=== PATIENT | female | born 1965 | race Caucasian/White ===

== ENCOUNTER → 2017-05-19 | Outpatient (CLI) | payer OTHER ==
--- NOTE | 2017-05-20 17:57 | CT ---
EXAM DESCRIPTION: CTA Chest CLINICAL HISTORY: 51 years, Female, AORTIC ARCH SYNDROME [[id number]] COMPARISON: None TECHNIQUE: Rapid bolus administration of nonionicIV contrast was performed with thin-section axial scanning of the chest performed in a dynamic fashion. Reconstructed multiplanar and three dimensional MIP and/or VRT images were created on a separate dedicated workstation were reviewed along with the source axial images and stored in the patient's medical record. Stenoses were evaluated using the NASCET criteria. This exam was performed according to our departmental dose-optimization program, which includes automated exposure control, adjustment of the mA and/or kV according to patient size and/or use of iterative reconstruction technique. FINDINGS: CT of the chest to evaluate the aortic arch and great vessels was performed and demonstrates a normal-sized heart. There is diminished vascular enhancement within the pulmonary vessels but good quality enhancement of the aorta and great vessels. Aortic annulus and valve is normal in caliber but there is significant dilation of the a.c. sending aorta measuring 3.7 cm in diameter and continuing the proximal portion of the aortic arch at the level of the innominate artery. The descending thoracic aorta is 2.2 cm in diameter and the mid aortic arch is 2.4 cm in diameter. Tiny amount of calcific plaque in the aortic arch just proximal to the left subclavian origin is present. The origin of the innominate artery and bifurcation and origin of the subclavian and common carotid artery on the right are widely patent. The origin of the right vertebral artery is not well seen secondary to dense contrast remaining in the right subclavian vein and collateral vessels. The left common carotid artery origin is widely patent. Small amount of ascitic plaque along the superior surface the aortic arch just proximal to the left subclavian origin is present without significant stenosis of that vessel. The origin of the small caliber left vertebral artery is normal. Continuing distally in the descending aorta at the origin of the celiac axis in the upper abdomen is normal. Modest degenerative changes and dextroscoliosis of the thoracic spine is evident. No evidence of pulmonary embolus or obstruction of the pulmonary outflow tract or Central pulmonary vessels are noted. The right lung is clear and the left lung demonstrates minor basilar scarring or linear atelectasis at the mid lung base. IMPRESSION: 1. 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 2. 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 Small amount of calcific plaque along the superior surface of the aortic arch proximal to the left subclavian artery is noted. 3. Minor linear scarring or atelectasis at the left lung base. 4. Incidental note of small sliding-type hiatal hernia. Electronically signed by: Kirby Frausto MD 05/20/2017 5:55 PM CDT
== END | disposition home or self-care (01) ==
LOC: CT 07:58
PROVIDERS: ATTEND Nuclear Medicine Nuclear Cardiology
DX: M31.4 Aortic arch syndrome [Takayasu] (principal); I73.9 Peripheral vascular disease, unspecified; Q23.0 Congenital stenosis of aortic valve; E78.2 Mixed hyperlipidemia

== ENCOUNTER → 2019-07-06 | Outpatient (CLI) | payer OTHER ==
--- NOTE | 2019-07-07 08:18 | CT ---
EXAM DESCRIPTION: CTA Chest: Computed Tomography. CLINICAL HISTORY: AORTIC STENOSIS. Preprocedure planning: aortic valve replacement. COMPARISON: CTA chest for May 2017. TECHNIQUE: Spiral-axial scans at 2.5 x 2.5 mm intervals through the aorta after bolus infusion of IV contrast. Lung algorithm 1.25 x 2.5-mm axial reconstructions. Sagittal and coronal 2.0 Mm reconstructions. 0.6 mm HD MIP on rotational axis and 0.6 mm volume rendering rotational axis 3-D reformatted images. No adverse reactions. Total Exam DLP: 613.61 mGy-cm. This exam was performed according to our departmental CT dose-optimization program which includes automated exposure control, adjustment of the mA and/or kV according to patient size and/or use of iterative reconstruction technique; to reduce radiation dose to as low as reasonably achievable (ALARA). FINDINGS: Aorta: Aortic valve is visualized with central calcification enlarged compared to prior study. Aorta just distal to the valve is narrowed 2.3 cm. At the level of the pulmonary artery bifurcation in the mid ascending arch, diameter is 3.3 cm. There is a questionable wall defect laterally with lateral bulge of the lumen at this level. This could also represent an artifact, but was also seen on the prior study. 3.6 cm diameter between this level and the origin of the right innominate artery. Minimal atherosclerotic calcification on the inferior wall. At the origin of the right innominate artery, diameter is 2.5 cm. Minimal calcification of the ostium and approximately 20% diameter stenosis. At the origin of the left subclavian artery, diameter is 2.1 x 2.4 cm with approximately 40% diameter stenosis of the ostium of the artery with atherosclerotic calcification. This has progressed since the prior study. 2.5 x 2.4 cm diameter at the level of the tracheal pam. Origins of the common carotid artery, and left vertebral artery are unremarkable. Origin of the right vertebral artery is partially obscured by artifact from IV contrast in the right subclavian vein. Heart and other great vessels: Left atrium appears slightly more enlarged since the prior study. Brachiocephalic vessels show no calcification distal to the ostia as described above. Minimal contrast enhancement of the pulmonary artery and proximal branches with no filling defects. Lungs and airways: Pleural parenchymal scarring in the bilateral lower lobes. Bilateral pleural-based blebs. Posterior inferior dependent atelectasis right lower lobe base. No abnormal nodules or masses. No focal infiltrates. Pleura: Sporadic pleural thickening but no effusion or pneumothorax. Mediastinum and felicita: scatter artifact from dense aortic contrast. Small lymph nodes. Fatty hilum in the larger lymph nodes in the AP window and azygous space. No dominant soft tissue masses. 11 mm right hilar node is stable. Soft tissue neck, chest wall, and axillae: Bilateral axillary lymph nodes. No dominant soft tissue masses. Upper abdomen: Uniform enhancement of the included organs. No free air or free fluid in the included retroperitoneal space. Partial visualization of the gallbladder. Atherosclerotic changes with calcification upper abdominal aorta. Osseous structures: Multiple levels of spondylosis mid and lower thoracic spine. No lytic or blastic lesions. IMPRESSION: Mammogram 1. Aortic valve contains a larger calcification compared to the prior study. Narrowing immediately distal to the valve with diameter 2.3 cm. Largest diameter of the aorta is between the most lateral segment and the origin of the innominate artery, 3.6 cm. There is also a lateral bulge of the lateral aortic wall at this level which was also seen on the prior study. With no significant change. Calcification of the ostia of the innominate artery and left subclavian artery. 40% stenosis of the origin of the left subclavian. Electronically signed by: Alexandro Vang MD 07/07/2019 8:17 AM SECURITY MANAGEMENT SPECIALIST
== END ==
LOC: CT 07:55
PROVIDERS: ATTEND Thoracic Surgery (Cardiothoracic Vascular Surgery)
DX: I35.0 Nonrheumatic aortic (valve) stenosis (principal)

== ENCOUNTER → 2019-07-10 | Outpatient (CLI) | payer OTHER | LOC: LAB.O 14:20 | PROVIDERS: ATTEND Thoracic Surgery (Cardiothoracic Vascular Surgery) | DX: Z01.89 Encounter for other specified special examinations (principal) ==

== ENCOUNTER 2019-12-04 16:53 | Observation (INO) | payer OTHER ==
[2019-12-04] MEDS ORDERED: predniSONE 20 MG TAB PO ONE (17:05)
[2019-12-04] MEDS ORDERED: ACETAMINOPHEN 325 MG TAB PO ONE ×2 (17:05→19:59)
[2019-12-04] MEDS ORDERED: diphenhydrAMINE HCL 25 MG CAP PO ONE (17:05)
--- NOTE | 2019-12-04 17:31 | RAD ---
EXAM DESCRIPTION: Abdomen Series CLINICAL HISTORY: 54 years Female, anemia severe COMPARISON: None. FINDINGS: Sternotomy wires are present. Heart size is normal. No consolidating infiltrate. Slight blunting of left costophrenic angle. Linear scarring in the right lung base. Upright view of the abdomen shows no free air under the diaphragm. Arthritic hardware in the lower lumbar spine. Mild leftward curvature of the lower thoracic and upper lumbar spine. Supine view the abdomen shows moderate to large in amount of fecal material in the colon. No small bowel dilatation to suggest obstruction. Sacrum and bones of the upper pelvis appear intact. IMPRESSION: Moderate amount of fecal material in the colon. Prominent heart without congestive failure. Discoid atelectasis lung bases. Left pleural scarring or small effusion. Electronically signed by: Juan Montemayor MD 12/04/2019 5:30 PM CDT
--- NOTE | 2019-12-04 18:32 | ED.PDOC ---
History of Present Illness - General Chief Complaint: General Stated Complaint: SOB, Dizziness, Low H/H Time Seen by Provider: 12/04/19 16:58 Source: patient Exam Limitations: no limitations - History of Present Illness Initial Comments: The patient is a 54-year-old female presented emergency room after being sent over from clinic secondary to severe anemia and associated fatigue and shortness of breath related to that. The patient has been feeling poorly for at least the last 2 to 3 weeks and from her description likely significantly longer. The patient does take Coumadin for a mechanical valve that was placed back in July. The patient has apparently only had one INR check in August since that time. She has not had any hemoglobin checks since surgery apparently. The patient is pleasant and cooperative. No fever. No shortness of breath at rest. No edema. The patient is pleasant and cooperative though is easily winded and very weak in general. She denies any melanotic stools and no blood in stool and no vomiting. No abdominal pain. The patient reports that she had a lower endoscopy with Dr. Curiel here about 4 years ago that was apparently normal. She reports having an upper endoscopy that was normal 10 years ago with someone else. Timing/Duration: unsure Severity: severe Improving Factors: rest Worsening Factors: movement Associated Symptoms: malaise, shortness of breath, weakness Allergies/Adverse Reactions: Allergies Sulfa Antibiotics Allergy (Unknown, Verified 12/04/19 17:03) Home Medications: Ambulatory Orders Albuterol Sulfate [Proair Digihaler] 108 mcg IN BID 12/04/19 Amoxicillin & Pot Clavulanate [Augmentin Tab] 875 mg PO BID 12/04/19 Omeprazole Magnesium [Prilosec Otc] 20 mg PO DAILY 12/04/19 Warfarin Sodium 5 mg PO WKLY 12/04/19 Warfarin Sodium [Coumadin] 2.5 mg PO WKLY 12/04/19 Review of Systems - Review of Systems Constitutional: States: malaise, weakness EENTM: States: no symptoms reported Respiratory: States: short of breath Cardiology: States: other - Near syncope Gastrointestinal/Abdominal: States: no symptoms reported Genitourinary: States: no symptoms reported Musculoskeletal: States: no symptoms reported Skin: States: no symptoms reported Neurological: States: weakness Endocrine: States: no symptoms reported All other Systems: No Change from Baseline Past Medical History (General) - Patient Medical History Hx Cardiac Disorders: Yes - aortic valve Hx Congestive Heart Failure: No Hx Diabetes: No Surgical History: other - Vaccination History Hx Influenza Vaccination: No - Social History Hx Alcohol Use: Yes - sparingly - Activities of Daily Living Hospice Agency (if applicable):: None - Female History Patient is a Female of Child Bearing Age (10 -59 yrs old): No Patient : No - Triage Comment ED Triage Comment: pt voices SOB, dizziness that has been worsing since open heart procedure in July. She voices that she decided to have a exam done by doctor and lab results showed low H/H so she was referred here to ER by Dr. Gatica. Family Medical History - Family History Mother Family History: Unknown Physical Exam - Physical Exam General Appearance: Alert, Frail, Ill Appearing Eye Exam: bilateral normal Ears, Nose, Throat: hearing grossly normal, normal pharynx - Pale mucous membranes Neck: full range of motion, supple Respiratory: lungs clear, normal breath sounds, no respiratory distress, no accessory muscle use Cardiovascular/Chest: normal peripheral pulses, regular rate, rhythm, no edema Peripheral Pulses: radial,right: 2+, radial,left: 2+ Gastrointestinal/Abdominal: non tender, soft Rectal Exam: deferred Back Exam: no CVA tenderness, no vertebral tenderness Extremity: normal range of motion, non-tender, normal inspection, no pedal edema, normal capillary refill 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 Based on the changes in her red blood cells this is likely at least 3 or 4 months making. The patient reports no history of any obvious GI blood loss. No abdominal pain. Multiple send out labs are of course still pending at this time. The patient is going to be receiving matched packed red blood cells here tonight. She has been premedicated. Obviously the patient is going to need endoscopy at some point in the future, however given the current limitations with coronavirus that will likely be put off several weeks given that she does not appear to be actively significantly bleeding at this time. It is uncertain whether the patient had a bleed from being supratherapeut ic at some point over the past months as she has not been getting her INR checked, or hemoglobins checked over the last 5 months. The patient also has taken Augmentin within the last month which can in theory give a hemolytic anemia, though that is unlikely the cause. Certainly a mechanical valve can cause an hemolysis and anemia. Peripheral blood smear should help clear that up as well as other lab work. The patient is profoundly iron deficient and will require some supplementation. She may benefit from an initial IV supplementation after the blood transfusion if she is doing better. Continue telemetry monitoring and supplemental oxygen for symptomatic relief. The patient will have to be continued on Coumadin. Initial fecal occult blood was inadequate. We will have to wait for the patient to have a bowel movement. Admit for transfusion and continued monitoring. No Lasix is been given at this time. - Results/Orders Results/Orders: Chest x-ray shows cardiomegaly without overt fluid overload. Moderate constipation on the abdominal x-ray. EKG shows normal sinus rhythm 81 bpm normal axis. Normal R wave progression. No definitive ST segment or T wave changes indicative of acute ischemia. Borderline prolonged QT interval. Laboratory Tests 12/04/19 12/04/19 12/04/19 17:00 17:00 17:00 WBC 5.4 RBC 2.04 L Hgb 3.3 L* Hct 11.5 L MCV 56.3 L MCH 16.3 L MCHC 29.0 L RDW 20.3 H Plt Count 386 MPV 8.1 Absolute Neuts (auto) 3.50 Absolute Lymphs (auto) 1.50 Absolute Monos (auto) 0.40 Absolute Eos (auto) 0.00 Absolute Basos (auto) 0.00 Neutrophils % 64.7 Neutrophils % (Manual) 84.0 H Lymphocytes % 26.8 Lymphocytes % (Manual) 12.0 Monocytes % 6.9 Monocytes % (Manual) 4.0 Eosinophils % 0.9 L Basophils % 0.7 Hypochromia 3+ Platelet Estimate Normal Poikilocytosis 1+ Anisocytosis 3+ Microcytosis 2+ Macrocytosis 1+ PT INR PTT (SP) D-Dimer, Quantitative Sodium 135 Potassium 3.8 Chloride 106 Carbon Dioxide 20 L Anion Gap 12.8 BUN 18 Creatinine 0.74 BUN/Creatinine Ratio 24.3 H Random Glucose 98 Serum Osmolality 272.0 L Calcium 8.8 Magnesium 2.2 Iron TIBC Iron Saturation Total Bilirubin 0.5 Direct Bilirubin Indirect Bilirubin AST 29 ALT 30 Alkaline Phosphatase 85 LD Total Creatine Kinase 35 CK-MB (CK-2) 1.1 CK-MB (CK-2) % Not Reportable Troponin I < 0.02 B-Natriuretic Peptide 266.0 H* Serum Total Protein 6.9 Albumin 4.0 Globulin 2.9 Albumin/Globulin Ratio 1.4 TSH 2.39 Urine Color Urine Appearance Urine pH Ur Specific Monona Urine Protein Urine Glucose (UA) Urine Ketones Urine Blood Urine Nitrite Urine Bilirubin Urine Urobilinogen Ur Leukocyte Esterase Urine RBC Urine WBC Ur Epithelial Cells Amorphous Sediment Urine Bacteria Urine Mucus Crossmatch See Detail 12/04/19 12/04/19 12/04/19 17:00 17:00 17:40 WBC RBC Hgb Hct MCV MCH MCHC RDW Plt Count MPV Absolute Neuts (auto) Absolute Lymphs (auto) Absolute Monos (auto) Absolute Eos (auto) Absolute Basos (auto) Neutrophils % Neutrophils % (Manual) Lymphocytes % Lymphocytes % (Manual) Monocytes % Monocytes % (Manual) Eosinophils % Basophils % Hypochromia Platelet Estimate Poikilocytosis Anisocytosis Microcytosis Macrocytosis PT 19.7 H INR 1.99 H PTT (SP) 27.9 D-Dimer, Quantitative < 131 L Sodium Potassium Chloride Carbon Dioxide Anion Gap BUN Creatinine BUN/Creatinine Ratio Random Glucose Serum Osmolality Calcium Magnesium Iron 8 L TIBC 554.4 H Iron Saturation 1.40 L Total Bilirubin Cancelled Direct Bilirubin 0.1 Indirect Bilirubin Cancelled AST ALT Alkaline Phosphatase LD Total 171 Creatine Kinase CK-MB (CK-2) CK-MB (CK-2) % Troponin I B-Natriuretic Peptide Serum Total Protein Albumin Globulin Albumin/Globulin Ratio TSH Urine Color Yellow Urine Appearance Clear Urine pH 5.5 Ur Specific Monona >= 1.030 Urine Protein Negative Urine Glucose (UA) Negative Urine Ketones Negative Urine Blood Negative Urine Nitrite Negative Urine Bilirubin Negative Urine Urobilinogen 0.2 Ur Leukocyte Esterase Small H Urine RBC 0-1 Urine WBC 3-5 H Ur Epithelial Cells 3-5 Amorphous Sediment 2+ Urine Bacteria 2+ H Urine Mucus Large Crossmatch Departure - Departure Clinical Impression: Iron deficiency, Symptomatic anemia Disposition: Admit Patient Departure Forms: ED Discharge - Pt. Copy, Patient Portal Self Enrollment Referrals: KEITH GATICA MD [Primary Care Provider] - 1-2 Weeks Home Medications: Ambulatory Orders Albuterol Sulfate [Proair Digihaler] 108 mcg IN BID 12/04/19 Amoxicillin & Pot Clavulanate [Augmentin Tab] 875 mg PO BID 12/04/19 Omeprazole Magnesium [Prilosec Otc] 20 mg PO DAILY 12/04/19 Warfarin Sodium 5 mg PO WKLY 12/04/19 Warfarin Sodium [Coumadin] 2.5 mg PO WKLY 12/04/19 Decision To Admit - Decistion To Admit Decision to Admit Reason: Medical Nature Decision to Admit Date: 12/04/19 Decision to Admit Time: 18:39
[2019-12-04] MEDS ORDERED: FUROSEMIDE INJ 40 MG/4 ML VIAL IV ONE (19:59)
[2019-12-04] MEDS ORDERED: diphenhydrAMINE HCL 50 MG/ML VIAL IV ONE (19:59)
[2019-12-04] MEDS ORDERED: SODIUM CHLORIDE 0.9% 500ML 500 ML IVS SCH (20:00)
[2019-12-04] MEDS ORDERED: IV SET AND CAP CHANGE INJ INJ SCH (20:00)
[2019-12-04] MEDS ORDERED: ACETAMINOPHEN 325 MG TAB PO PRN (20:00)
[2019-12-04] MEDS ORDERED: SODIUM CHLORIDE 0.9% (FLUSH) 10 ML SYG IV PRN (20:00)
[2019-12-04] MEDS ORDERED: ONDANSETRON INJ 4 MG/2 ML VIAL IV PRN (20:00)
[2019-12-04] MEDS ORDERED: ALBUTEROL INHALER 64 PUFF/8GM INH PRN (20:37)
[2019-12-05] MEDS ORDERED: PANTOPRAZOLE SODIUM IV 40 MG VIAL IV SCH (06:30)
[2019-12-05] MEDS ORDERED: FUROSEMIDE INJ 20 MG/2 ML VIAL IV ONE (09:26)
[2019-12-05] MEDS ORDERED: diphenhydrAMINE HCL 50 MG/ML VIAL IV ONE (09:26)
[2019-12-05] MEDS ORDERED: ACETAMINOPHEN 325 MG TAB PO ONE (09:26)
[2019-12-05] MEDS ORDERED: SODIUM CHLORIDE 0.9% 500ML 500 ML IVS SCH (09:30)
[2019-12-05] MEDS ORDERED: SODIUM CHLORIDE 0.9% 250ML 250 ML ONE (10:14)
[2019-12-05 14:54] VITALS: O2SAT 99
[2019-12-05 14:59] VITALS: BP 134/79; TEMP 98.1
--- NOTE | 2019-12-06 13:41 | SSS ---
SUPERVISING PHYSICIAN: Espinoza Nuno MD DATE OF ADMISSION: 12/04/19 DATE OF DISCHARGE: 12/05/19 DISCHARGE DIAGNOSIS: 1. Acute blood loss anemia, most likely from mechanical valve that was replaced in July 2019. Cannot rule out gastrointestinal process as well. On admission, hemoglobin was 3 and hematocrit 12. 2. Hypertension. 3. Attention deficit hyperactivity disorder. 4. Gastroesophageal reflux disease. HISTORY OF PRESENT ILLNESS: This is a 54-year-old female patient who came to the Emergency Room after she had been sent over from the clinic secondary to severe anemia with associated fatigue and shortness of breath. The patient had been feeling very poorly and very weak for the last 2 to 3 weeks and most likely has been much longer than that. She had a mechanical valve replacement in July and was on Coumadin. She has had only had one INR checked since that time. She also has not had any blood work done since that time. On admission to the Emergency Room, she was very pale and weak, but pleasant and cooperative. She had no shortness of breath. She was extremely weak and got winded very easily. She said she had no blood in her stools as well as no vomiting of blood. She has no abdominal pain. She does have a history of gastroesophageal reflux disease and had a scope about 4 or 5 years ago that was reportedly normal. In the Emergency Room, her vital signs were stable with her initial blood pressure showing temperature 97.8, heart rate 96, blood pressure 128/72, respiratory rate 18, O2 saturation 100% on room air. Lab studies were done and her WBCs were 5.4 with hemoglobin 3.3 and hematocrit 11.5. She did have a left shift on her differential. INR was 1.99 and D-dimer was less than 131. Electrolytes were basically within normal limits. Extensive lab studies were done in the ER and she was typed and crossed for 3 units of packed red blood cells. Her urinalysis showed a small amount of urine leukocyte esterase with 3 to 5 WBCs and 2+ urine bacteria. They were unable to get a stool for occult blood sample. Dr. Baltazar, the ER physician, spoke to Dr. Gatica who had spoken to Dr. Bass, her roof truss machine tender, and they felt she could safely be admitted to the hospital and given blood transfusion with close followup with Dr. Gatica, her roof truss machine tender, Dr. Bass, and her CV surgeon. PAST MEDICAL HISTORY: 1. Hyperlipidemia. 2. Attention deficit hyperactivity disorder. 3. Hypertension. 4. Aortic valve insufficiency. 5. Gastroesophageal reflux disease. 6. Asthma. 7. Migraines. PAST SURGICAL HISTORY: 1. Cardiac valve replacement in July of 2019 with replacement of her aortic valve with a mechanical valve. 2. Hernia repair. 3. Lumbar spine surgery. 4. Knee surgery. 5. 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 OUTPATIENT MEDICATIONS: 1. Coumadin. 2. Prilosec. 3. ProAir HFA. ALLERGIES: SULFA ANTIBIOTICS. FAMILY HISTORY: Unremarkable. SOCIAL HISTORY: She is employed at [employer]. She is . She has three children. She quit smoking in March of last year. She drinks alcohol on a social basis. There is no history of illicit drug use. REVIEW OF SYSTEMS: GENERAL: Positive for fatigue. Negative for fever or weight changes. HEENT: Negative for sinus symptoms, ear pain, vision changes or sore throat. RESPIRATORY: Positive for shortness of breath. Negative for wheezing or coughing. CARDIAC: Negative for chest pain, palpitations or tachycardia. GASTROINTESTINAL: Negative for nausea, vomiting, diarrhea, constipation or abdominal pain. GENITOURINARY: Negative for hematuria, dysuria or polyuria. SKIN: Negative for lesions or rashes. NEUROLOGIC: Positive for weakness. Negative for headache or seizures. PHYSICAL EXAMINATION: VITAL SIGNS: Temperature 97.9. Heart rate 87. Blood pressure 131/76. Respiratory rate 17. O2 saturation 93%. GENERAL: This is a 54-year-old female patient who is lying in her hospital bed. She is in no acute distress. She is very pale. HEENT: Normocephalic, atraumatic. Pupils are equal and reactive. Oropharynx is clear. Oral mucous membranes are pale. NECK: Supple without mass. RESPIRATORY: Essentially clear to auscultation bilaterally. CARDIOVASCULAR: Regular rate and rhythm. GASTROINTESTINAL: Abdomen is soft, nondistended, nontender. Bowel sounds are positive. EXTREMITIES: No cyanosis, clubbing or edema. NEUROLOGIC: Awake, alert and oriented times three. Cranial nerves II-XII are grossly intact as tested. LABORATORY: After 3 units of blood, her hemoglobin came up to 7.2 and hematocrit 22.3. Electrolytes are basically within normal limits. Iron 8, TIBC 554.4, iron saturation 1.4, total bilirubin 1.4. Liver enzymes within normal limits. BNP 266, TSH 2.39. She has extensive lab that are pending. Urine culture is pending. RADIOLOGY: Abdominal x-ray shows moderate amount of fecal material in the colon, prominent heart without congestive failure, discoid atelectasis of the lung bases, left pleural scarring and small effusion. Echocardiogram report shows 1) Normal left ventricular size and function. 2) Left ventricular ejection fraction estimated at 55-60%. 3) Mild aortic valve regurgitation. 4) No evidence of patent foramen ovale after agitated saline injection. HOSPITAL COURSE: She was placed in observation and given 3 units of packed red blood cells. She felt remarkably better after her blood transfusion. We discussed her discharge and plan of care. She will be discharged in stable condition with close followup with Dr. Gatica. DISCHARGE PLAN: The patient will be discharged home in stable condition. She is to increase her activity as tolerated and resume her usual diet. She has a followup appointment with Dr. Gatica on 12/07/19 at 8:15 AM. She is to go to the clinic and have lab drawn and she will see Dr. Gatica in clinic after her lab is done. It is recommended that her urine culture be reviewed as well as her pending lab studies. She will also need followup with Dr. Bass, her CV surgeon, hematology as well as a GI doctor. She is to hold her aspirin and there is to be no Coumadin or warfarin until she follows up with Dr. Gatica. She is to return to the hospital or followup with Dr. Gatica for any problems or complications. DISCHARGE MEDICATIONS: 1. Albuterol sulfate. 2. Omeprazole. #[id number] MTDD
== END 2019-12-05 14:30 | disposition home or self-care (01) ==
LOC: ER 16:53 → MS 19:27 → OBSVTOIN 19:27 → INTOOBSV 19:27
PROVIDERS: ADMIT Nurse Practitioner Acute Care; ATTEND Nurse Practitioner Acute Care
DX: D50.0 Iron deficiency anemia secondary to blood loss (chronic) (principal); Z95.2 Presence of prosthetic heart valve; I10 Essential (primary) hypertension; F90.9 Attention-deficit hyperactivity disorder, unspecified type; K21.9 Gastro-esophageal reflux disease without esophagitis; E78.5 Hyperlipidemia, unspecified; J45.909 Unspecified asthma, uncomplicated; Z79.01 Long term (current) use of anticoagulants; Z79.899 Other long term (current) drug therapy; Z88.2 Allergy status to sulfonamides; Z87.891 Personal history of nicotine dependence
CPT/HCPCS: 96374; 96375; 96376; Q0163; J1200 ×2; J1940 ×2; J7512; J7040; J7050; 85379; 82553; 80053 ×2; 87086; 85014; 85018; 36415 ×3; 87077; 87186; 81001; 82248; 85025 ×2; 82550; 82668; 83010; 83020; 83615; 83735 ×2; 85730; 85610 ×2; 83970; 85045; 84443; 84484; 83880; 83540; 83550; 86664; 86665 ×2; 83605; 74019; P9016 ×3; 86922 ×2; 86900; 86901; 86850; 36430; 94760 ×2; 99285; 93306; 93005; G0378

== ENCOUNTER → 2020-03-21 | Outpatient (CLI) | payer OTHER | LOC: LAB.O 14:10 | PROVIDERS: ATTEND Nuclear Medicine Nuclear Cardiology | DX: Q23.0 Congenital stenosis of aortic valve (principal) ==

== ENCOUNTER → 2020-08-22 | Outpatient (CLI) | payer BC | LOC: GMAE 10:38 | PROVIDERS: ATTEND Family Medicine | DX: Z00.00 Encounter for general adult medical examination without abnormal findings (principal) ==

== ENCOUNTER → 2020-09-19 | Outpatient (CLI) | payer BC ==
--- NOTE | 2020-09-19 17:13 | MAM ---
EXAM DESCRIPTION: 3D Screening BILATERAL : Digital Mammography. CLINICAL HISTORY: 55 years Female screening . No complaints and no family history of breast cancer. Menarche age 12. Childbirth age 23. Menopause age 44. No HRT.. Lifetime risk of developing breast cancer (Tyrer-Cuzick model)(%): 8.0. COMPARISON: Bilateral screening digital breast 2-D imaging March 2014. TECHNIQUE: Bilateral CC and MLO projection full-field images, digital tomosynthesis mammographic technique. Bilateral digital 2-D full-field MLO images. CAD available for 2-D images. FINDINGS: The breast parenchymal density pattern is: Scattered areas of fibroglandular density. Increasing fatty replacement of the fibroglandular tissues bilaterally since the prior study. Solitary microcalcifications. Possibly intramammary lipoma lower inner quadrant anterior left breast. No skin thickening or nipple retraction No new focal, stellate mass or density, focal asymmetry , and no suspicious microcalcifications bilaterally. IMPRESSION: Benign exam. BIRAD CATEGORY: 2 BENIGN FINDINGS. RECOMMENDATIONS: FOLLOW UP: Routine digital bilateral mammographic screening, one year interval from September 2020. Written communication explaining the IMPRESSION and follow-up, will be mailed to the patient and referring health care provider. According to the [employer], yearly mammograms are recommended starting at age 40 and continuing as long as a woman is in good health. Any breast change noted on a breast self-exam should be reported promptly to the patient's healthcare provider. Breast MRI is recommended for women with an approximately 20-25% or greater lifetime risk of breast cancer, including women with a strong family history of breast or ovarian cancer and women who have been treated for Hodgkin's disease. A negative mammographic report should not delay tissue diagnosis in patients with significant clinical history or physical findings. Extremely dense breast tissue limits the sensitivity of digital mammography. Electronically signed by: Alexandro Vang MD 09/19/2020 5:12 PM OFFICE CLINICIAN
== END ==
LOC: MAMMO 14:45
PROVIDERS: ATTEND Family Medicine
DX: Z12.31 Encounter for screening mammogram for malignant neoplasm of breast (principal)

== ENCOUNTER → 2020-10-09 | Outpatient (CLI) | payer BC | LOC: GMAE 10:48 | PROVIDERS: ATTEND Family Medicine | DX: D50.0 Iron deficiency anemia secondary to blood loss (chronic) (principal); Z95.2 Presence of prosthetic heart valve ==